=== PATIENT | male | born 1985 | race Caucasian/White ===

== ENCOUNTER 2017-03-25 05:33 | Day surgery (SDC) | payer OTHER ==
[~2017-03-25] VITALS: Ht 167.6 cm; Wt 81.1 kg
[~2017-03-25 05:33] MED LIST: CLEOCIN HCL75 MG PO; NEURONTIN400 MG PO; OXYMORPHONE HCL20 MG PO; ROXICODONE15 MG PO
[2017-03-25 06:48] VITALS: BP 128/65
[2017-03-25] MEDS ORDERED: MOTRIN600 MG PO (11:24)
[2017-03-25] MEDS ORDERED: CLEOCIN300 MG PO (11:29)
[2017-03-25 12:15] VITALS: BP 124/69
== END 2017-03-25 12:40 | disposition home or self-care (01) ==
LOC: SDC 05:33
DX: L05.01 Pilonidal cyst with abscess (principal); L02.215 Cutaneous abscess of perineum; K61.0 Anal abscess; F17.210 Nicotine dependence, cigarettes, uncomplicated; F12.10 Cannabis abuse, uncomplicated; E66.3 Overweight; Z68.28 Body mass index [BMI] 28.0-28.9, adult
CPT/HCPCS: 88304; J0690; J1100; J1170; J1200; J1885; J2250; J2405; J3010; S0020

== ENCOUNTER 2017-05-11 12:34 | Day surgery (SDC) | payer OTHER ==
[~2017-05-11] VITALS: Ht 170.2 cm; Wt 81.0 kg
[~2017-05-11 12:34] MED LIST changes: +AUGMENTIN875 MG PO; +CLEOCIN300 MG PO; +MOTRIN600 MG PO; +OSTEO BI-FLEX1 EAC1 PO
[2017-05-11 13:12] VITALS: BP 122/55
[2017-05-11] MEDS ORDERED: MOTRIN600 MG PO (15:46)
[2017-05-11 16:50] VITALS: BP 121/71
[2017-05-11 17:00] VITALS: BP 114/64
== END 2017-05-11 17:15 | disposition home or self-care (01) ==
LOC: SDC 12:34
DX: L73.2 Hidradenitis suppurativa (principal); F17.210 Nicotine dependence, cigarettes, uncomplicated; F12.10 Cannabis abuse, uncomplicated
CPT/HCPCS: 88304; J0330; J1170; J1885; J2250; J2405; J2550; J3010; S0020; S0074